=== PATIENT | female | born 1965 | race Caucasian/White ===

== ENCOUNTER → 2020-06-17 10:27 | Outpatient (CLI) | payer SELFPAY ==
--- NOTE | ~2020-06-17 | MM_ITS ---
EXAMINATION: MM screening sindy BI w arian HISTORY: Screening TECHNIQUE: Craniocaudal and mediolateral oblique 3-D tomosynthesis images were obtained and synthetic 2-D images were generated. CAD analysis was submitted and interpreted. COMPARISON: Comparison to multiple prior studies sequentially, with oldest reviewed study dated 02/10. BREAST PARENCHYMAL COMPOSITION: The breasts are heterogeneously dense, which may obscure small masses . FINDINGS: There is no evidence of suspicious mass, calcification, or architectural distortion to sugg est malignancy in either breast. There has been no suspicious interval change. IMPRESSION: 1. No mammographic evidence of malignancy. 2. Recommend routine screening mammography in one year. BI-RADS Category 1: Negative Reviewed, dictated and finalized at location A. HAND
== END ==
PROVIDERS: PCP Internal Medicine; Visit Provider Obstetrics & Gynecology
DX: Z12.31 Encounter for screening mammogram for malignant neoplasm of breast (principal)
CPT/HCPCS: 77063; 77067

== ENCOUNTER → 2021-06-03 10:56 | Outpatient (CLI) | payer BC, SELFPAY ==
--- NOTE | ~2021-06-03 | MR_ITS ---
EXAMINATION: MR lumbar spine wo con DATE: 06/03/2021 11:33 INDICATION: Low back pain. Lumbar radiculopathy. TECHNIQUE: Magnetic resonance imaging (MRI) of the lumbar spine was performed without intravenous con trast. Sequences included sagittal T2-weighted FSE, sagittal T2-weighted FS FSE, sagittal T1-weighted FSE, and axial T2-weighted FSE. COMPARISON: Lumbar spine MRI 07/23/2018 FINDINGS: There is 5 degrees dextrocurvature of lumbar spine. Vertebral body heights are normal. Ther e is mildly decreased disc height at L3-L4 and L5-S1 and moderately decreased disc height at L4-L5 wi th endplate remodeling. The distal spinal cord signal intensity is normal. The conus medullaris is at L1. The following disc levels are specifically discussed: L1-L2: The disc does not extend beyond the endplate margin. There is mild bilateral facet joint osteo arthritis. There is no neural foraminal stenosis. There is no central canal stenosis. L2-L3: The disc does not extend beyond the endplate margin. There is mild bilateral facet joint osteo arthritis. There is no neural foraminal stenosis. There is no central canal stenosis. L3-L4: The disc is bulging. There is moderate bilateral facet joint osteoarthritis. There is mild troy ateral neural foraminal stenosis. There is mild central canal stenosis. L4-L5: The disc is bulging and has an annular fissure. There is severe right and moderate left facet joint osteoarthritis. There is moderate bilateral neural foraminal stenosis. There is mild central ca nal stenosis with posterior decompression. L5-S1: The disc is bulging and has an annular fissure. There is mild right and moderate left facet enoc int osteoarthritis. There is mild bilateral neural foraminal stenosis. There is mild central canal st enosis with posterior decompression. IMPRESSION: 1. Moderate lower lumbar spondylosis with mild interval worsening at L4-L5. Reviewed, dictated and finalized at location B. PUSHER
== END ==
PROVIDERS: Visit Provider Physical Medicine & Rehabilitation
DX: M47.26 Other spondylosis with radiculopathy, lumbar region (principal)
CPT/HCPCS: 72148

== ENCOUNTER 2021-10-10 07:52 | Outpatient (CLI) | payer BC, SELFPAY ==
--- NOTE | ~2021-10-10 | CT_ITS ---
EXAMINATION: CT abdomen pelvis wo con DATE: 10/10/2021 08:14 INDICATION: Chronic cystitis. TECHNIQUE: Computed tomography (CT) of the abdomen and pelvis was performed without intravenous contr ast. Automated exposure control and iterative reconstruction technique were employed. The dose-length product was 317.64 mGy-cm. COMPARISON: None. FINDINGS: The visualized portions of the lung bases demonstrate mild atelectasis. A calcified right l supriya nodule is consistent with old granulomatous disease. No pleural effusion. The heart size is august l. No pericardial effusion. The liver and gallbladder are normal. Calcifications in the spleen are co nsistent with old granulomatous disease. The pancreas, adrenal glands, and kidneys are normal. There is no urolithiasis. The bladder is normal. There are no dilated loops of bowel. The appendix is august l. There are no pathologically enlarged lymph nodes. There is no free intraperitoneal fluid. There is mild thoracolumbar spondylosis. IMPRESSION: 1. No urolithiasis. Reviewed, dictated and finalized at location A. IMPRESSION: 1. No urolithiasis.
== END 2021-10-10 07:53 | disposition home or self-care (01) ==
LOC: ANHIMG 07:55
PROVIDERS: PCP Internal Medicine; Visit Provider Urology
DX: N30.20 Other chronic cystitis without hematuria (principal)
CPT/HCPCS: 74176

== ENCOUNTER → 2022-03-10 07:04 | Outpatient (CLI) | payer OTHER, SELFPAY ==
--- NOTE | ~2022-03-10 | MM_ITS ---
EXAMINATION: MM screening sindy BI w arian HISTORY: Screening TECHNIQUE: Craniocaudal and mediolateral oblique 3-D tomosynthesis images were obtained and synthetic 2-D images were generated. CAD analysis was submitted and interpreted. COMPARISON: Comparison to multiple prior studies sequentially, with oldest reviewed study dated 03/25. BREAST PARENCHYMAL COMPOSITION: The breasts are heterogeneously dense, which may obscure small masses . FINDINGS: There is a new mass in the subareolar location of the left breast which is obscured by over lying fibroglandular content. The right breast is stable without evidence for malignancy. IMPRESSION: 1. New 9 mm mass in the subareolar location of the left breast. 2. Additional mammographic views and possible breast ultrasound are recommended. BI-RADS Category 0: Incomplete: Needs additional imaging evaluation. Reviewed, dictated and finalized at location A. IMPRESSION: 1. New 9 mm mass in the subareolar location of the left breast. 2. Additional mammographic views and possible breast ultrasound are recommended . BI-RADS Category 0: Incomplete: Needs additional imaging evaluation.
== END ==
PROVIDERS: PCP Internal Medicine; Visit Provider Obstetrics & Gynecology
DX: Z12.31 Encounter for screening mammogram for malignant neoplasm of breast (principal); R92.8 Other abnormal and inconclusive findings on diagnostic imaging of breast
CPT/HCPCS: 77063; 77067

== ENCOUNTER → 2022-03-23 08:20 | Outpatient (CLI) | payer OTHER, SELFPAY ==
--- NOTE | ~2022-03-23 | MMUS_ITS ---
EXAMINATION: MM diagnostic sindy LT w arian, US breast LT complete HISTORY: Follow-up left breast mass TECHNIQUE: Additional 3-D tomosynthesis images of the left breast were performed and synthetic 2-D im ages were generated. CAD analysis was submitted and interpreted. High resolution complete left breast ultrasound was performed. COMPARISON: Comparison to multiple prior studies sequentially, with oldest reviewed study dated 03/25. BREAST PARENCHYMAL COMPOSITION: The breasts are heterogeneously dense, which may obscure small masses . FINDINGS: MAMMOGRAPHIC FINDINGS: There are focal asymmetries in the periareolar location of the left breast, although no discrete mass es identified by mammography. ULTRASOUND: Complete left breast US of all 4 quadrants of the breasts and retroareolar region was reviewed. There are multiple cysts in the left breast near the areola, largest measuring 9 mm. In addition, there is an oval hypoechoic mixed solid and cystic mass measuring 6 mm without internal vascularity and mixed posterior attenuation. There is parallel orientation. IMPRESSION: 1. Complicated mixed solid and cystic 6 mm mass of the left breast near the areola. 2. Ultrasound-guided left breast biopsy recommended. BI-RADS category 4, suspicious findings. Reviewed, dictated and finalized at location A. IMPRESSION: 1. Complicated mixed solid and cystic 6 mm mass of the left breast near the are miguel. 2. Ultrasound-guided left breast biopsy recommended. BI-RADS category 4, suspicious findings.
== END ==
PROVIDERS: PCP Internal Medicine; Visit Provider Obstetrics & Gynecology
DX: N63.20 Unspecified lump in the left breast, unspecified quadrant (principal); R92.8 Other abnormal and inconclusive findings on diagnostic imaging of breast
CPT/HCPCS: 76641; 77061; 77065; G0279

== ENCOUNTER 2022-04-07 10:09 | Outpatient (CLI) | payer OTHER, SELFPAY ==
--- NOTE | 2022-04-07 11:30 | NEURO_ITS ---
Impression: # Complains of radicular pain. History of lower back surgery. # Normal nerve conduction study. # Normal needle/EMG exam. # Clinical correlation recommended. Motor Nerve Conduction Lower Extremities Peroneal Nerve Conduction Velocity (m/sec) Terminal Latency (msec) Response Voltage(mV) Popliteal space-Ankle Ankle Extensor Dig Brevis Popliteal space Ankle Right 51 4.0 2 2 Left 50 3.8 3 3 Tibial Nerve Conduction Velocity (m/sec) Terminal Latency (msec) Response Voltage(mV) Popliteal space-Ankle Ankle-Extensor Dig Brevis Popliteal space Ankle Right 48 4.0 3 3 Left 49 3.9 1 2 F-waves Peroneal Nerve (ms) Tibial Nerve (ms) Right 53.0 53.9 Left 53.2 53.5 Sensory Nerve Conduction Lower Extremities Sural Nerve Stimulation Terminal Latency (msec) Ankle Response Voltage (uV) Ankle Response Velocity (m/sec) Right 3.7 26 43 Left 3.5 31 46 Superficial Peroneal Nerve Stimulation Terminal Latency (msec) Ankle Response Voltage (uV) Ankle Response Velocity (m/sec) Right 3.0 12 59 Left 3.6 15 44 Left Right Muscles Examined Fibrillation Fasciculation Scarcity Voltage Duration Left Right Left Right Left Right Left Right Left Right X X Ant Tibialis X X Gastroc X X Fibularis Long X X Flex Dig Long X X Ext Dig Brev Abd Hallucis X X Quadriceps Paraspinals MTDD
== END 2022-04-07 10:10 | disposition home or self-care (01) ==
LOC: ANHNEURO 10:11
PROVIDERS: PCP Internal Medicine; Visit Provider Nurse Practitioner Family
DX: M54.16 Radiculopathy, lumbar region (principal)
CPT/HCPCS: 95886; 95910

== ENCOUNTER → 2022-12-31 06:56 | Outpatient (CLI) | payer BC, SELFPAY ==
--- NOTE | ~2022-12-31 | XR_ITS ---
EXAMINATION: XR lumbar spine min 4V DATE: 12/31/2022 08:04 INDICATION: Postlaminectomy syndrome, not elsewhere classified. TECHNIQUE: 5 views of lumbar spine including flexion and extension views were obtained. COMPARISON: Lumbar spine MRI 12/31/2022 FINDINGS: There is 7 degrees dextrocurvature of lumbar spine. Vertebral body heights are normal. Ther e is mildly decreased disc height at L3-L4, L4-L5, and L5-S1. There are changes of laminectomy at L5. There is severe facet joint osteoarthritis in lower lumbar spine. There is no abnormal motion with f lexion or extension. IMPRESSION: 1. Mild lumbar spondylosis. Reviewed, dictated and finalized at location A. IMPRESSION: 1. Mild lumbar spondylosis.
--- NOTE | ~2022-12-31 | MR_ITS ---
EXAMINATION: MR cervical spine wo con DATE: 12/31/2022 07:39 INDICATION: Nerve pain. Bilateral leg pain. TECHNIQUE: Magnetic resonance imaging (MRI) of the cervical spine was performed without intravenous c ontrast. COMPARISON: None FINDINGS: Bone alignment is normal. Vertebral body heights are normal. There is moderately decreased disc height at C3-C4 and C4-C5, mildly decreased disc height at C5-C6, and moderately decreased disc height at C6-C7. There is increased T2-weighted signal intensity in the spinal cord at C4-C5 involvin g the mayfield matter, consistent with myelomalacia. The following disc levels are specifically discussed : C2-C3: The disc does not extend beyond the endplate margin. There is no uncovertebral joint osteoarth ritis. There is severe right facet joint osteoarthritis. There is mild right neural foraminal stenosi s. There is no central canal stenosis. C3-C4: The disc is bulging. There is severe bilateral uncovertebral joint osteoarthritis. There is mi ld bilateral facet joint osteoarthritis. There is mild right and moderate left neural foraminal steno sis. There is moderate central canal stenosis with ventral and dorsal indentation of spinal cord. C4-C5: The disc is bulging. There is severe bilateral uncovertebral joint osteoarthritis. There is mo derate bilateral facet joint osteoarthritis. There is moderate bilateral neural foraminal stenosis. T here is severe central canal stenosis with ventral and dorsal indentation of the spinal cord. C5-C6: There is a left central extrusion. There is mild bilateral uncovertebral joint osteoarthritis. There is moderate bilateral facet joint osteoarthritis. There is mild bilateral neural foraminal lauren nosis. There is mild central canal stenosis with ventral indentation of the spinal cord. C6-C7: The disc is bulging. There is moderate right and severe left uncovertebral joint osteoarthriti s. There is severe bilateral facet joint osteoarthritis. There is mild right and moderate left neural foraminal stenosis. There is mild central canal stenosis with ventral indentation of spinal cord. C7-T1: The disc does not extend beyond the endplate margin. There is no uncovertebral joint osteoarth ritis. There is severe bilateral facet joint osteoarthritis. There is mild bilateral neural foraminal stenosis. There is no central canal stenosis. IMPRESSION: 1. Myelomalacia at C4-C5. 2. Severe cervical spondylosis. Reviewed, dictated and finalized at location A.
--- NOTE | ~2022-12-31 | MR_ITS ---
EXAMINATION: MR lumbar spine wo con DATE: 12/31/2022 07:42 INDICATION: Nerve pain. Bilateral leg pain. TECHNIQUE: Magnetic resonance imaging (MRI) of the lumbar spine was performed without intravenous con trast. Sequences included sagittal T2-weighted FSE, sagittal T2-weighted FS FSE, sagittal T1-weighted FSE, and axial T2-weighted FSE. COMPARISON: Lumbar spine MRI 06/03/2021 FINDINGS: There is 4 degrees dextrocurvature of lumbar spine. Vertebral body heights are normal. Ther e is mildly decreased disc height at L3-L4, L4-L5, and L5-S1. The distal spinal cord signal intensity is normal. The conus medullaris is at L1. The following disc levels are specifically discussed: L1-L2: The disc does not extend beyond the endplate margin. There is mild bilateral facet joint osteo arthritis. There is no neural foraminal stenosis. There is no central canal stenosis. L2-L3: The disc does not extend beyond the endplate margin. There is mild bilateral facet joint osteo arthritis. There is no neural foraminal stenosis. There is no central canal stenosis. L3-L4: The disc is bulging. There is moderate bilateral facet joint osteoarthritis. There is mild troy ateral neural foraminal stenosis. There is mild central canal stenosis. L4-L5: The disc is bulging and has an annular fissure. There is severe right and moderate left facet joint osteoarthritis. There is moderate right and mild left neural foraminal stenosis. There is mild central canal stenosis with posterior decompression. L5-S1: The disc is bulging and has an annular fissure. There is moderate bilateral facet joint osteoa rthritis. There is mild bilateral neural foraminal stenosis. There is mild central canal stenosis. IMPRESSION: 1. Moderate lower lumbar spondylosis, stable from 06/03/2021. Reviewed, dictated and finalized at location A.
== END ==
PROVIDERS: PCP Internal Medicine; Visit Provider Neurological Surgery
DX: M47.896 Other spondylosis, lumbar region (principal); M47.892 Other spondylosis, cervical region
CPT/HCPCS: 72110; 72141; 72148

== ENCOUNTER → 2023-04-09 09:56 | Outpatient (CLI) | payer BC, SELFPAY ==
--- NOTE | ~2023-04-09 | MM_ITS ---
EXAMINATION: MM screening sindy BI w arian HISTORY: Screening mammogram TECHNIQUE: Craniocaudal and mediolateral oblique 3-D tomosynthesis images were obtained and synthetic 2-D images were generated. CAD analysis was submitted and interpreted. COMPARISON: 03/23/2022, 03/10/2022, 06/17/2020, 06/02/2018 BREAST PARENCHYMAL COMPOSITION: The breasts are heterogeneously dense, which may obscure small masses . FINDINGS: There are changes of interval left breast biopsy. No suspicious mass, calcification, or arc hitectural distortion are identified in either breast to suggest malignancy. There has been no suspic ious interval change. IMPRESSION: 1. No mammographic evidence of malignancy. 2. Recommend routine screening mammography in one year. BI-RADS Category 1: Negative Reviewed, dictated and finalized at location A. INSPECTOR
== END ==
PROVIDERS: PCP Obstetrics & Gynecology; Visit Provider Obstetrics & Gynecology
DX: Z12.31 Encounter for screening mammogram for malignant neoplasm of breast (principal)
CPT/HCPCS: 77063; 77067

== ENCOUNTER 2023-07-13 08:29 | Outpatient (CLI) | payer BC, SELFPAY ==
--- NOTE | ~2023-07-13 | MR_ITS ---
MRI of the lumbar spine Clinical History: Back pain Technique: Axial T2-weighted images, and sagittal T1-weighted, T2-weighted, and and T2 fat-sat images were acquired. COMPARISON: 12/31/2022 Findings: There is no fracture or subluxation of the lumbar spine. Vertebral bodies maintain normal h eight and alignment. No suspicious bone marrow signal abnormality seen. At L1-L2 and L2-L3, there is no disc bulge or herniation. There is moderate facet joint arthropathy l evels. No spinal canal stenosis or neural foraminal narrowing at these levels. L3-L4, there is mild disc bulge with moderate facet arthropathy. No central canal stenosis or neural foraminal narrowing. At L4-L5, there is diffuse disc bulge with moderate to advanced facet arthropathy. No central canal s tenosis. There is moderate left neural foraminal narrowing, and moderate to advanced right neural for aminal narrowing. At L5-S1, there is central disc protrusion with moderate to advanced facet arthropathy. No central ca nal stenosis. There is mild bilateral neural foraminal narrowing. Paravertebral soft tissues are unremarkable. Impression: Mild to moderate degenerative spondylosis, as above. Reviewed, dictated and finalized at [facility]. TING SUPERVISOR Impression: Mild to moderate degenerative spondylosis, as above.
--- NOTE | ~2023-07-13 | MR_ITS ---
MRI of the thoracic spine Clinical History: Pain Technique: Axial T2-weighted and gradient images, and sagittal T1-weighted, T2-weighted, and STIR helio ges were acquired. Findings: There is no fracture or subluxation of the thoracic spine. Vertebral bodies maintain normal height and alignment. No bone marrow signal abnormality seen. There is mild left paracentral disc bulge at T2-T3 with minimal flattening the ventral cord. There is mild left paracentral disc bulge at T3-T4, with minimal flattening the ventral cord. There is minima l right paracentral disc bulge at T5-T6, with minimal flattening the ventral cord. There is tiny cent ral disc protrusion at T6-T7. There is tiny central disc protrusion at T7-T8. No dez canal stenosis or cord compression evident. No abnormal signal seen in the spinal cord. No epidural mass or collection seen. Paravertebral soft tissues are unremarkable. Impression: Mild degenerative spondylosis, as above. Reviewed, dictated and finalized at [facility]. NESS RISK ANALYST Impression: Mild degenerative spondylosis, as above.
== END 2023-07-13 08:30 ==
PROVIDERS: PCP Neurological Surgery; Visit Provider Nurse Practitioner Family
DX: M47.24 Other spondylosis with radiculopathy, thoracic region (principal); M47.26 Other spondylosis with radiculopathy, lumbar region
CPT/HCPCS: 72146; 72148

== ENCOUNTER 2024-03-15 14:16 | Outpatient (CLI) | payer BC, SELFPAY ==
--- NOTE | 2024-03-15 14:20 | ECG_ITS ---
Test Date: 2024-03-15 14:44:00 Measurements Intervals [place] Rate: 56 P: 48 TX: 179 QRS: 63 QRSD: 94 T: 52 QT: 422 QTc: 409 Interpretive Statements SINUS BRADYCARDIA INCOMPLETE RIGHT BUNDLE BRANCH BLOCK [90+ ms QRS DURATION, TERMINAL R IN V1/V2, 40+ ms S IN I/aVL/V4/V5/V6] No previous ECG available for comparison Electronically Signed On 03-16-2024 09:36:17 CDT by Rachel Elena M.D.
[2024-03-15 15:09] LABS: Hematocrit 42.3 % (37.0-47.0); Hemoglobin 13.6 g/dL (12.0-15.0); Mean Corpuscular HGB Conc 32.2 g/dl (32-36); Mean Corpuscular Hemoglobin 28.6 pg (26-34); Mean Corpuscular Volume 89.1 fl (80-100); Mean Platelet Volume 11.4 fl (7.4-10.4); Platelet Count Result 252 k/mm3 (150-375); Red Blood Count 4.75 M/mm3 (4.2-5.4); Red Cell Distribution Width 13.1 % (11.5-14.5); White Blood Count 7.9 K/mm3 (4.5-10.0)
[2024-03-15 15:11] LABS: Add Urine Microscopic? NO; Appearance Urine Clear (Clear); Bilirubin Urine Negative (Negative); Blood Urine Negative (Negative); Color Urine Yellow (Yellow); Glucose Urine UA Negative (Negative); Ketones Urine Trace mg/dL (Negative); Leukocyte Esterase Ur Negative LEU/UL (Negative); Nitrate Urine Negative (Negative); Protein Urine Negative (Negative); Specific Grav Ur 1.022 (1.001-1.035)
[2024-03-15 15:21] LABS: INR 0.9; Prothrombin Time 13.1 Seconds (11.1-14.7)
[2024-03-15 15:22] LABS: Partial Thromboplastin Time 28.3 Seconds (22.3-36.8)
[2024-03-15 15:39] LABS: Anion Gap 6 mmol/L (4-12); Blood Urea Nitrogen 11 mg/dL (7-17); Calcium 9.3 mg/dL (8.4-10.2); Carbon Dioxide 29 mmol/L (22-30); Chloride 104 mmol/L (98-107); Estimated Glomerular Filt Rate > 60; Glucose 90 mg/dL (65-110); Potassium 3.8 mmol/L (3.4-5.0); Sodium 139 mmol/L (137-145)
== END 2024-03-15 14:17 | disposition home or self-care (01) ==
PROVIDERS: PCP Internal Medicine; Visit Provider Neurological Surgery
DX: M96.1 Postlaminectomy syndrome, not elsewhere classified (principal); I45.10 Unspecified right bundle-branch block
CPT/HCPCS: 36415; 80048; 81003; 85027; 85610; 85730; 93005

== ENCOUNTER 2024-03-22 00:22 | Day surgery (SDC) | payer BC, SELFPAY ==
[2024-03-14 14:54] VITALS: BMI 24.3
--- NOTE | 2024-03-14 14:56 | PC.NURSE ---
Report to the Outpatient Waiting Room, entrance under the green pavilion located off [facility], at time _1100_ on date _[id number]_. Planned Procedure Time: _1pm_.? Time changes happen often and if your time is changed the preop area will call you the afternoon before. - You and your visitor will be asked to self-screen and do not enter if you have any COVID symptoms. Please call surgeon if you need to reschedule. - A mask is optional within the hospital at this time. Patients may have clear liquids (water, carbonated beverages, clear teas, apple juice) until 3 hours prior to surgery with a maximum of 20 ounces. - No food from midnight until time of surgery and no smoking Take only the following medications with a SIP of water on the morning of surgery: __Pregabalin and flonase____ DO NOT STOP ANY OF YOUR OTHER PRESCRIPTION MEDICATIONS PRIOR TO SURGERY EXCEPT THE FOLLOWING Medications to discontinue per physician Fish oil Date to take last [id number] Please no make-up, nail portuguese, hairspray, perfume, deodorant, or body powder the day of surgery.? No jewelry (including any body piercings) or valuables the day of surgery, leave them at home.? Please take a shower or bath the night before, or the morning of, surgery with an antibacterial soap.? Wear comfortable, loose fitting clothing.? - Jewelry must be removed prior to entering the operating room.? Rings and piercings that are not removed may be cut off. - The hospital will not accept responsibility for valuables.? - Please leave all valuables, including medications, at home the day of surgery. If you are going home after surgery, a licensed food mobile driver must drive you home.? - NO public transportation without another adult if you receive anesthesia. - We recommend that an adult stay with you for 24 hours following discharge. - We also recommend that you do not drive, make important decision, drink alcoholic beverages, or take any drugs that were not prescribed by your health care provider for at least 24 hours after your discharge time. Follow any additional instructions given to you from your surgeon. Telephone instructions given to __Angie__and asked if any additional questions and then verbalized understanding. Patient advised to call surgeon office or pre surgery nurse liaison [phone] if any additional questions.
[2024-03-22] VITALS (9 sets, daily range): BP systolic 107–132; BP diastolic 70–83; PULSE 51–73; RESP 12–20; TEMP 36.1–36.3; O2SAT 94–100
--- NOTE | ~2024-03-22 | XR_ITS ---
EXAMINATION: XR fluoroscopy no charge DATE: 03/22/2024 09:21 INDICATION: T9 laminotomy for spinal cord stimulator placement TECHNIQUE: 4 fluoroscopic images of the thoracic and lumbar spine were obtained during procedure perf ormed by Dr. Martin. Radiologist was not present for the imaging or procedure. The amount of fluoros copy time used during this procedure was 0.3 minutes. Total DAP was 1.89 Gycm^2. COMPARISON: None. FINDINGS: Images demonstrate tissue retractors and lucent surgical wound overlying T9-T10. The spinal stimulato r lead projects over the lower thoracic central canal of the distal tip at the level of the T7-T8 dis c space. IMPRESSION: 1. Fluoroscopy utilized during reported T9 laminotomy and spinal cord stimulator placement. See proce dure note for further detail. Reviewed, dictated and finalized at location A. IMPRESSION: 1. Fluoroscopy utilized during reported T9 laminotomy and spinal cord stimulato r placement. See procedure note for further detail.
[2024-03-22] MEDS: LACTATED RINGERS 1,000 ML 30 ML IV CONT (06:30)
--- NOTE | 2024-03-22 07:09 | P.PNAN_ITS ---
Anes - Initial Pre Proc Eval Procedure: Operation Date: 03/22/24 07:30 Proposed Procedures p T9 Laminotomy For Spinal Cord Stimulator Placement - Aliyah Martin MD Date/Time: 03/22/24 07:09 Surgeon: Aliyah Martin MD Pre Op Diagnosis: post laminectomy syndrome Patient Data Age: 58 Gender: F Height: 1.73 m Weight: 72.7 kg Allergies Allergy/AdvReac Type Severity Reaction Status Date / Time adhesive Allergy Unknown ADHESIVE Verified 03/14/24 14:45 TAPE CAUSES BLISTERING Home Medications Medication Instructions Recorded Confirmed Type atorvastatin 10 mg tablet 10 mg PO DAILY 08/21/21 03/14/24 History diazepam 5 mg tablet 5 mg PO QHS PRN Sleep 08/21/21 03/14/24 History pantoprazole 40 mg tablet,delayed 40 mg PO QAM 08/21/21 03/14/24 History release cetirizine 10 mg tablet (Zyrtec) 10 mg PO DAILY PRN Allergy Symptoms 08/20/22 03/14/24 History fluticasone propionate 50 1 spray intranasal DAILY 08/20/22 03/14/24 History mcg/actuation nasal spray,suspension (Flonase Allergy Relief) omega 5-shd-dxw-fish oil 60 mg-90 1 cap PO DAILY 08/20/22 03/14/24 History mg-500 mg capsule (Fish Oil) duloxetine 30 mg capsule,delayed 30 mg PO DAILY 03/08/24 03/14/24 History release (Cymbalta) estradiol 1 mg tablet 0.5 mg PO DAILY #90 tabs 03/14/24 03/14/24 Rx pregabalin 200 mg capsule 200 mg PO BID 03/14/24 03/14/24 History Patient hx anesthesia problems: post op nausea/vomiting Family hx anesthesia problems: none Results Review: All pre-operative results and documents have been reviewed as part of the pre-op erative evaluation. [facility] Past Medical History Medical History Bilateral breast cysts right breast cysts 2010; bilateral breast cysts 2015 BMI 24.0-24.9, adult GERD (gastroesophageal reflux disease) High cholesterol Screening mammogram, encounter for Spinal stenosis Vaginal discharge Surgical History Surgical History Delivery by section x 2 1982 H/O laminectomy (08/18/18) bilateral laminectomy H/O left breast biopsy (05/06/22) left breast biopsy done at [facility] ; Benign pathology H/O: hysterectomy (05/24/91) Hysterectomy/BS&O - endometriosis History of back surgery (08/18/18) removed small bone in back due to scoliosis Family History Family History Father Heart disease Acute myocardial infarction Other Breast tumor maternal cousin Mother Osteoarthritis Sibling No problems noted. Social History Social History Smoking packs per day: 0.25 Smoking cigarettes per day: 5.0 Years smoked: 20 Smoking pack-years: 5.00 Smoking status: Current every day smoker Tobacco type: cigarettes Second hand tobacco smoke exposure: Yes Additional smoking assessment comments: 5 a day Alcohol intake: current Drinks per week: 2 Alcohol use details: ocassional Substance use: current Substance use type: marijuana Other substance usage details: Daily Do You Feel Safe in your Home?: Yes Lack of Transportation: No Lack of Food: Never True Current Housing: I Have Housing Concerned About Future Housing: No Difficulty Paying Gas/Electric Bills: No Difficulty Paying for Meds: No Currently Unemployed: YES Education: Master's Degree or Higher Difficulty w/ Childcare or Family Care: No Living arrangements: with family Additional living arrangements comments: Occupation/Education: retired 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 Gender identity (if verbalized by the patient): Female Sexual Orientation (if Verbalized by the Patient): Straight or Heterosexual Spiritual care concerns: No Anes - Eval Final PreProcedure Day of Procedure 03/22/24 07:09 Patient weight: normal Heart: regular rate and rhythm Lungs: clear to auscultation Airway: Mallampati scale class II Neurological: alert and oriented Last oral intake: >/= 8 hours ASA classification: III Emergent: no Anesthetic plan: proceed Anesthesia type and monitoring: general ETT and standard monitoring Results Review: All pre-operative results and documents have been reviewed as part of the pre- operative evaluation. Informed Consent: The patient's anesthetic plan and its attendant risks and benefits were discussed with the patient/family/POA. Questions were solicited and answers provided to the satisfaction of the patient/family/POA.
--- NOTE | 2024-03-22 07:17 | WPDHPUPDATE1 ---
History and Physical Update Update Date/Time: 03/22/24 07:17 History and Physical has been reviewed, including an updated exam of the patient. There are NO changes in the patient's condition. Risks, benefits, and alternatives have been discussed and questions answered. Patient agrees to proceed with procedure.
[2024-03-22] MEDS: ceFAZolin 2 GM/D5W 50 ML 2 GM/50 ML BAG IVPB (07:30)
[2024-03-22] MEDS: LIDO 1%/EPINEPHRINE 1:100,000 20 ML VIAL INFILTRATE (08:05)
[2024-03-22] MEDS: VANCOMYCIN HCL 1,000 MG VIAL 500 MG TOPICAL (08:16)
--- NOTE | 2024-03-22 09:03 | P.OPB_ITS ---
Procedure Note - Brief Procedure Note - Brief Date of procedure: 03/22/24 post laminectomy syndrome Post-op diagnosis: Same Procedure performed: T9 laminotomy for placement of spinal cord stimulator Surgeon: Aliyah Martin MD Claims Support Specialist: Aly Anesthesia: GETA Findings: Successful placement to the top of T9 Estimated blood loss (mL): 25 Packing: No Pathology: None sent Complications: None Condition: Stable Disposition: PACU
--- NOTE | 2024-03-22 09:09 | P.OP_ITS ---
Procedure Note - Detailed Date of Procedure 03/22/24 Pre-op Diagnosis post laminectomy syndrome Post-op Diagnosis Same Procedure Performed 1. T9 laminotomy for placement of paddle spinal cord stimulator 2. Placement of generator in right upper gluteal region 3. Use of C-arm for fluoroscopy Surgeon Aliyah Martin MD Microfilm Camera Operator Aly Anesthesia General Indications Ms. Lam is a 58-year-old female with history of previous L4 and L5 laminectomies in 2019 who has had persistent burning pain in her right leg in particular following what sounds like an L5 dermatome for which she has had multiple treatments without any relief. She has since undergone another spinal cord stimulator trial with 60-65% of her improvement. She is interested in proceeding permanent implantation. Therefore, I think it is reasonable to proceed with surgery in the form of a T9 laminotomy for placement of spinal cord stimulator. We discussed the surgery in detail including risks, expected recovery, and restrictions after surgery. He would like to proceed with this as discussed. Description of Procedure The patient was brought to the OR where general anesthesia was induced. The patient was turned prone onto the OR table with Hunter frame. All pressure points were padded. C-arm was used to plan the level of the thoracic incision. A right gluteal incision was also planned for the generator site. The surgical site was prepped and draped in usual sterile fashion. Perioperative antibiotics were given. Local anesthesia was injected into the planned incisions. A 10-blade scalpel was used to open the right gluteal incision. A bovie was used to create a subcutaneous pocket inferiorly. The pocket was packed with a wet Raytec. Next, the thoracic incision was opened with the scalpel, and the soft tissue was dissected with the bovie. The laminae were exposed bilaterally at T9. This was confirmed with the C-arm. A laminotomy was performed at the mid portion of T9 with the Leksell, high-speed drill, and kerrisons. The laminotomy opening was widened laterally. A curved currette, Woodsen, and 3-penfield were used to separate the dura from the laminae. The paddle stimulator was then placed into the epidural space. C-arm verified placement to the top of T8, matching areas of stimulation from the trial. Anchors were placed into the leads which were attached to the muscle. The leads were tunneled to the gluteal incision. The leads were connected to the generator which was then placed into the gluteal pocket. The generator was secured with a silk suture. All incisions were irrigated copiously. Hemostasis was ensured in the thoracic incision with the bipolar and Surgiflo. Stimulon beads were placed into both incisions. The fascia was closed with 0 vicryl. The dermis was closed with 2-0 and 3-0 vicryl. The dermis at the generator site was closed with 2-0 vicryl. The skin was closed in both incisions with 4-0 monocryl. Dermabond was then placed. The patient was returned supine, extubated, and transferred to PACU. Billing codes: 41172, [id number] Estimated Blood Loss 25 Drains No Packing No Pathology None sent Complications None Condition Stable Disposition PACU [facility] Billing Surgery - Charge Forward: Surgery Billing
== END 2024-03-22 11:08 | disposition home or self-care (01) ==
PROVIDERS: PCP Internal Medicine; Visit Provider Neurological Surgery
PROC: (CPT 63005; principal; 2024-03-22 07:30)
DX: M96.1 Postlaminectomy syndrome, not elsewhere classified (principal); E78.00 Pure hypercholesterolemia, unspecified; K21.9 Gastro-esophageal reflux disease without esophagitis; F17.210 Nicotine dependence, cigarettes, uncomplicated; F12.90 Cannabis use, unspecified, uncomplicated
CPT/HCPCS: 63685; 63655; 99199; A9270; C1778; C1820; J0690; J1100; J1171; J1200; J2003; J2004; J2250; J2405; J2704; J3370; J7120

== ENCOUNTER 2025-03-23 15:02 | Outpatient (CLI) | payer BC, SELFPAY ==
--- NOTE | ~2025-03-23 | MM_ITS ---
EXAMINATION: MM screening [facility] BI w arian HISTORY: Screening TECHNIQUE: Craniocaudal and mediolateral oblique 3-D tomosynthesis images were obtained and synthetic 2-D images were generated. CAD analysis was submitted and interpreted. COMPARISON: Comparison to multiple prior studies sequentially, with oldest reviewed study dated 02/24/2017. BREAST PARENCHYMAL COMPOSITION: Dense: The breasts are heterogeneously dense, which may obscure small masses FINDINGS: There are multiple obscured masses scattered throughout both breasts. There are no suspicious calcifications or architectural distortion. IMPRESSION: 1. Obscured bilateral breast masses. Dense breasts. 2. Complete bilateral breast ultrasound. BI-RADS Category 0: Incomplete: Needs additional imaging evaluation. Reviewed, dictated and finalized at location B.
== END 2025-03-23 15:03 | disposition home or self-care (01) ==
LOC: MICIMG 15:07
PROVIDERS: PCP Internal Medicine; Visit Provider Obstetrics & Gynecology
DX: Z12.31 Encounter for screening mammogram for malignant neoplasm of breast (principal); R92.8 Other abnormal and inconclusive findings on diagnostic imaging of breast
CPT/HCPCS: 77063; 77067